=== PATIENT | female | born 1960 | race Caucasian/White ===

== ENCOUNTER 2017-08-06 10:42 | Emergency (ER) | payer MEDICAID ==
[~2017-08-06] VITALS: Ht 162.6 cm; Wt 77.7 kg
[~2017-08-06 10:42] MED LIST: CLOT30CR24 TOP; CYCL-319 PO; ERYT1OIN6 LEFT EYE; HYDR-906 PO; IBUP-1542 PO; NAPR-260 PO
[2017-08-06 10:49] VITALS: Ht 162.6 cm; Wt 77.7 kg
--- NOTE | 2017-08-06 14:12 | RADRPT ---
PROCEDURE: XR Chest. CLINICAL INDICATION: Neck swelling TECHNIQUE: Single frontal view of the chest was obtained COMPARISON: None FINDINGS: The heart and mediastinum are within normal limits. There is mild elevation of the right diaphragm. The lungs are clear. There is no pleural effusion or pneumothorax. RPTAT: AA IMPRESSION: No acute disease. .Afshin Mora MD, MD Date Time Electronically viewed and signed by .Afshin Mora MD, MD on 08/06/2017 14:11 .S/
[2017-08-06 14:47] LABS: ALBUMIN 4.4 g/dl (3.3-4.9); ALBUMIN/GLOBULIN RATIO 0.91; BILIRUBIN,INDIRECT 0.4 mg/dl (0-1.1); BILIRUBIN,TOTAL 0.4 mg/dl (0.2-1.3); CALCIUM 9.7 mg/dl (8.4-10.2); CREATININE 0.79 mg/dl (0.44-1.00); POTASSIUM 4.2 mmol/L (3.5-5.1); TOTAL PROTEIN 9.2 g/dl (6.1-8.1)
--- NOTE | 2017-08-06 15:36 | RADRPT ---
PROCEDURE: US Thyroid. CLINICAL INDICATION: Neck pain and dysphasia. TECHNIQUE: High-resolution sonography of the thyroid was performed in the axial and sagittal plane s. COMPARISON: None. FINDINGS: The right lobe measures 3.4 x 1.7 x 1.3 cm. The left lobe measures 3.4 x 1.0 x 1.1 cm. The isthmus measures 0.4 cm. There is a benign cystic nodule in the mid left lobe measuring 0.2 cm. There is no other thyroid nod ule. Thyroid echogenicity is normal. The thyroid is normal in size. IMPRESSION: 1. Benign cystic nodule in the mid left lobe measuring 0.2 cm. No further evaluation is required. 2. Otherwise normal thyroid ultrasound. RPTAT: QQ .Jigar Flores MD, Date Time Electronically viewed and signed by .Jigar Flores MD, on 08/06/2017 15:36 .R/
--- NOTE | 2017-08-06 15:55 | RADRPT ---
PROCEDURE: Ultrasound of the soft tissues of the neck. CLINICAL INDICATION: Palpable lesion in the bilateral neck. TECHNIQUE: High-resolution sonography of the bilateral neck at the site of the palpable lesion was performed in the axial and sagittal planes. COMPARISON: None FINDINGS: In the right side of the neck, there are benign-appearing lymph nodes measuring 1.0 x 0.4 cm 1.3 x 0 .4 cm. In the left side of the neck there are benign-appearing lymph nodes measuring 0.8 x 0.4 cm an d 0.7 x 0.3 cm. There is no other abnormality at the site of the palpable lesion. IMPRESSION: 1. Benign-appearing bilateral cervical lymph nodes. 2. Any further management regarding the palpable lesion should be based on clinical grounds. RPTAT: QQ .Jigar Flores MD, Date Time Electronically viewed and signed by .Jigar Flores MD, MD on 08/06/2017 15:55 .R/
[2017-08-06] MEDS ORDERED: IBUP-1542 PO (16:01)
[2017-08-06] MEDS ORDERED: PRED20TA PO (16:01)
[2017-08-06] MEDS ORDERED: AMOX1TAB10 PO (16:01)
[2017-08-06 16:17] LABS: BASOPHILS % 0.4 % (0.0-2.0); EOSINOPHILS # 0.2 10^3/ul (0.0-0.5); EOSINOPHILS % 2.1 % (0.0-7.0); HEMATOCRIT 45.2 % (37.0-47.0); HEMOGLOBIN 14.7 g/dl (12.0-16.0); LYMPHOCYTES # 2.4 10^3/ul (0.8-2.9); LYMPHOCYTES % 30.5 % (15.0-51.0); MEAN CORPUSCULAR HEMOGLOBIN 28.5 pg (29.0-33.0); MEAN CORPUSCULAR HGB CONC 32.5 g/dl (32.0-37.0); MEAN CORPUSCULAR VOLUME 87.6 fl (82.0-101.0); MEAN PLATELET VOLUME 11.5 fl (7.4-10.4); MONOCYTE # 0.4 10^3/ul (0.3-0.9); MONOCYTES % 5.6 % (0.0-11.0); NEUTROPHIL # 4.7 10^3/ul (1.6-7.5); NEUTROPHILS % 61.1 % (39.0-77.0); PLATELET COUNT 244 10^3/UL (140-415); RED BLOOD COUNT 5.16 10^6/ul (4.20-5.40); RED CELL DISTRIBUTION WIDTH 12.6 % (11.5-14.5); WHITE BLOOD COUNT 7.7 10^3/ul (4.8-10.8)
--- NOTE | 2017-08-06 16:18 | ERD ---
ER Documentation Chief Complaint Chief Complaint HAVING TROUBLE SWALLOWING, SWOLLEN LUMPS ON NECK/THROAT HPI 56-year-old female comes in with painful swallowing, and noting swelling to her neck. She states that this started about 4 weeks ago when she has painful swallowing with this. Her anterior neck lesions that have swelling, she has some pain in the anterior neck as well, described as pressure-like and is worse when she is swallowing. She has not had any fevers or chills, voice changes, drooling, shortness breath, chest pain. Denies palpitations. ROS All systems reviewed and are negative except as per history of present illness. Medications Home Meds Active Scripts Prednisone* (Prednisone*) 20 Mg Tab, 40 MG PO DAILY for 5 Days, TAB Prov:MESERET OVALLE PA-C 08/06/17 Ibuprofen* (Motrin*) 600 Mg Tab, 600 MG PO Q6, #30 TAB Prov:MESERET OVALLE PA-C 08/06/17 Amoxicillin/Potassium Clav (Amox-Clav 875-125 mg Tablet) 875-125 mg Tab, 1 TAB PO BID for 7 Days, #14 TAB Prov:MESERET OVALLE PA-C 08/06/17 Cyclobenzaprine Hcl* (Cyclobenzaprine Hcl*) 10 Mg Tablet, 10 MG PO TID, #15 TAB Prov:ABIMBOLA GARZA PA-C 06/19/16 Hydrocodone/Acetaminophen ([place] 5-325 Tablet) 1 Each Tablet, 1 TAB PO Q6H Y for PAIN, #7 TAB Prov:ABIMBOLA GARZA PA-C 06/19/16 Naproxen* (Naprosyn*) 500 Mg Tablet, 500 MG PO BID Y for PAIN AND/OR INFLAMMATION, #30 TAB Prov:ABIMBOLA GARZA PA-C 06/19/16 Clotrimazole* (Clotrimazole* AF) 1% - 30 Gm Cream.gm., 1 APPLIC TOP BID for 7 Days, TUB Prov:FERNANDO COWAN 11/20/15 Ibuprofen* (Motrin*) 600 Mg Tab, 600 MG PO Q6, #30 TAB Prov:FERNANDO COWAN 11/20/15 Erythromycin (Erythromycin Opth) 3.5 Gm Oint..gm., 1 APPLIC LEFT EYE QID for 7 Days, EA Prov:HAZEL JULES NP 07/01/15 Allergies Allergies: Coded Allergies: No Known Drug Allergies (Verified Allergy, Unknown, 06/19/16) PMhx/Soc Medical and Surgical Hx: pt denies Medical Hx, pt denies Surgical Hx History of Surgery: No Anesthesia Reaction: No Hx Neurological Disorder: No Hx Respiratory Disorders: No Hx Cardiac Disorders: No Hx Psychiatric Problems: No Hx Miscellaneous Medical Probl: No Hx Alcohol Use: No Hx Substance Use: No Hx Tobacco Use: No Smoking Status: Never smoker Physical Exam Vitals Vital Signs Date Time Temp Pulse Resp B/P Pulse Ox O2 Delivery O2 Flow Rate FiO2 08/06/17 10:49 98.9 74 16 139/69 97 Physical Exam General: Well-developed, well-nourished. The patient appears in no acute distress. HEENT: Head is normocephalic, atraumatic. No scleral icterus. Pupils are equal , round, and reactive. Oral mucous membranes are moist. No pharyngeal erythema. Neck: Supple, no meningismus. There is definite cervical anterior lymphadenopathy, no fluctuance, no erythema, no warmth. There are no thyroid masses appreciated. Lungs: Clear to auscultation. Normal air movement. Heart: Regular rate and rhythm. S1 and S2 are normal. No murmurs, gallops, or rubs. Abdomen: Soft, nontender, nondistended. Bowel sounds are normoactive. Extremities: No clubbing or cyanosis. Normal pulses. Moving extremities x 4. No weakness. Neurologic: Alert and oriented 3. No focal deficits. Skin: Normal turgor. No rash or lesions. Result Diagram: 08/06/17 1420 08/06/17 1420 Results 24 hrs Laboratory Tests Test 08/06/17 14:20 White Blood Count 7.710^3/ul Red Blood Count 5.1610^6/ul Hemoglobin 14.7g/dl Hematocrit 45.2% Mean Corpuscular Volume 87.6fl Mean Corpuscular Hemoglobin 28.5pg Mean Corpuscular Hemoglobin Concent 32.5g/dl Red Cell Distribution Width 12.6% Platelet Count 32588^3/UL Mean Platelet Volume 11.5fl Neutrophils % 61.1% Lymphocytes % 30.5% Monocytes % 5.6% Eosinophils % 2.1% Basophils % 0.4% Nucleated Red Blood Cells % 0.0/100WBC Neutrophils # 4.710^3/ul Lymphocytes # 2.410^3/ul Monocytes # 0.410^3/ul Eosinophils # 0.210^3/ul Basophils # 0.010^3/ul Nucleated Red Blood Cells # 0.010^3/ul Sodium Level 144mmol/L Potassium Level 4.2mmol/L Chloride Level 102mmol/L Carbon Dioxide Level 35mmol/L Anion Gap 11 Blood Urea Nitrogen 13mg/dl Creatinine 0.79mg/dl Glucose Level 155mg/dl Calcium Level 9.7mg/dl Total Bilirubin 0.4mg/dl Direct Bilirubin 0.00mg/dl Indirect Bilirubin 0.4mg/dl Aspartate Amino Transf (AST/SGOT) 21IU/L Alanine Aminotransferase (ALT/SGPT) 34IU/L Alkaline Phosphatase 111IU/L Total Protein 9.2g/dl Albumin 4.4g/dl Globulin 4.80g/dl Albumin/Globulin Ratio 0.91 DIAGNOSTIC IMAGING REPORT Patient: TRUE FRENCH : 1960 Age: 56 Sex: F MR #: [id number] DOS: 08/06/17 1336 Ordering MD: MESERET OVALLE PA-C Location: [facility] Room/Bed: PROCEDURE: XR Chest. CLINICAL INDICATION: Neck swelling TECHNIQUE: Single frontal view of the chest was obtained COMPARISON: None FINDINGS: The heart and mediastinum are within normal limits. There is mild elevation of the right diaphragm. The lungs are clear. There is no pleural effusion or pneumothorax. RPTAT: AA IMPRESSION: No acute disease. .Afshin Mora MD, MD Date Time Electronically viewed and signed by .Afshin Mora MD, on 08/06/2017 14: 11 .S/ CC: MESERET OVALLE PA-C DIAGNOSTIC IMAGING REPORT Patient: TRUE FRENCH : 1960 Age: 56 Sex: F MR #: [id number] DOS: 08/06/17 1439 Ordering MD: MESERET OVALLE PA-C Location: [facility]TE Room/Bed: PROCEDURE: US Thyroid. CLINICAL INDICATION: Neck pain and dysphasia. TECHNIQUE: High-resolution sonography of the thyroid was performed in the axial and sagittal planes. COMPARISON: None. FINDINGS: The right lobe measures 3.4 x 1.7 x 1.3 cm. The left lobe measures 3.4 x 1.0 x 1.1 cm. The isthmus measures 0.4 cm. There is a benign cystic nodule in the mid left lobe measuring 0.2 cm. There is no other thyroid nodule. Thyroid echogenicity is normal. The thyroid is normal in size. IMPRESSION: 1. Benign cystic nodule in the mid left lobe measuring 0.2 cm. No further evaluation is required. 2. Otherwise normal thyroid ultrasound. RPTAT: QQ .Jigar Flores MD, MD Date Time Electronically viewed and signed by .Jigar Flores MD, MD on 08/06/2017 15:36 .R/ CC: MESERET OVALLE PA-C DIAGNOSTIC IMAGING REPORT Patient: TRUE FRENCH : 1960 Age: 56 Sex: F MR #: [id number] DOS: 08/06/17 1336 Ordering MD: MESERET OVALLE PA-C Location: E Room/Bed: PROCEDURE: Ultrasound of the soft tissues of the neck. CLINICAL INDICATION: Palpable lesion in the bilateral neck. TECHNIQUE: High-resolution sonography of the bilateral neck at the site of the palpable lesion was performed in the axial and sagittal planes. COMPARISON: None FINDINGS: In the right side of the neck, there are benign-appearing lymph nodes measuring 1.0 x 0.4 cm 1.3 x 0.4 cm. In the left side of the neck there are benign- appearing lymph nodes measuring 0.8 x 0.4 cm and 0.7 x 0.3 cm. There is no other abnormality at the site of the palpable lesion. IMPRESSION: 1. Benign-appearing bilateral cervical lymph nodes. 2. Any further management regarding the palpable lesion should be based on clinical grounds. RPTAT: QQ .Jigar Flores MD, MD Date Time Electronically viewed and signed by .Jigar Flores MD, MD on 08/06/2017 15:55 .R/ CC: MESERET OVALLE PA-C Procedures/MDM 56-year-old female presents with neck swelling, the patient presents with cervical lymphadenopathy that was seen on the ultrasound, there are no suspicious masses seen or evidence of an abscess. Patient additionally comes in with pain to her anterior neck, there is a cystic lesion on the thyroid, no thyroid mass. Vitals are normal, I doubt patient has thyroiditis. She does not have dysphagia, or difficulty swallowing, there are no signs to indicate CVA or stroke. No evidence of deep space infection, or meningitis. This is her first evaluation for the symptoms. I have advised patient will be treated for lymphadenitis, and if symptoms do not improve that she may follow-up with ENT as outpatient. Patient will be given information to Dr. Jarquin if needed. Departure Diagnosis: Primary Impression: Thyroid cyst Additional Impression: Lymphadenopathy Condition: Good Patient Instructions: Lymphedema Additional Instructions: Llame al doctor MAANA y garrett mamta LEVON PARA DENTRO DE 1-2 WHITE.Dgale a la secretaria que nosotros le instruimos hacer esta levon.Avise o llame si vargas condicin se empeora antes de la levon. Regresa aqui si peor o no mejor. MESERET OVALLE PA-C Aug 06, 2017 16:18
== END 2017-08-06 17:08 | disposition home or self-care (01) ==
LOC: FTE 10:42
DX: E04.1 Nontoxic single thyroid nodule (principal); R59.1 Generalized enlarged lymph nodes
CPT/HCPCS: 71010; 76536; 80053; 85025; Z7502

== ENCOUNTER → 2018-04-03 | Emergency (ER) | END | disposition home or self-care (01) ==

== ENCOUNTER 2018-09-28 07:44 | Emergency (ER) | payer MEDICAID ==
[~2018-09-28] VITALS: Ht 167.6 cm; Wt 72.0 kg
[~2018-09-28 07:44] MED LIST changes: +AMOX1TAB10 PO; +CEPH-443 PO; -CYCL-319 PO; +CYCL10TA7 PO; +HYDR-4011 PO; -HYDR-906 PO; -NAPR-260 PO; +NAPR-985 PO; +PHEN-538 PO; +PRED20TA PO
[2018-09-28 07:48] VITALS: BP 138/63; PULSE 71; RESP 20; Ht 167.6 cm; Wt 72.0 kg
[2018-09-28] MEDS ORDERED: NAPR-985 PO (09:58)
--- NOTE | 2018-09-28 09:58 | ERD ---
ER Documentation Chief Complaint Chief Complaint Complains of a lump under the neck x 2 days HPI Patient is a 57 year-old female with no past medical history presents ER for concerns of submandibular swelling for the last 7 months. Patient states she has pain with swallowing. Patient denies any drooling, trismus or difficulty breathing. Patient denies any chest pain or shortness of breath. Patient was seen here 1 year ago for similar symptoms advised to follow-up with an ENT specialist however she has not followed up with an ENT specialist. Patient denies any fevers or chills. Patient denies any vomiting. ROS All systems reviewed and are negative except as per history of present illness. Medications Home Meds Active Scripts Cephalexin* (Keflex*) 500 Mg Capsule, 500 MG PO TID for 7 Days, CAP Prov:ANTHONY ALONSO PA-C 04/03/18 Phenazopyridine Hcl* (Pyridium*) 200 Mg Tab, 200 MG PO TID PRN for URINARY PAIN, #10 TAB Prov:ANTHONY ALONSO PA-C 04/03/18 Prednisone* (Prednisone*) 20 Mg Tab, 40 MG PO DAILY for 5 Days, TAB Prov:MESERET OVALLE PA-C 08/06/17 Ibuprofen* (Motrin*) 600 Mg Tab, 600 MG PO Q6, #30 TAB Prov:MESERET OVALLE PA-C 08/06/17 Amoxicillin/Potassium Clav (Amox-Clav 875-125 mg Tablet) 875-125 mg Tab, 1 TAB PO BID for 7 Days, #14 TAB Prov:MESERET OVALLE PA-C 08/06/17 Cyclobenzaprine Hcl* (Cyclobenzaprine Hcl*) 10 Mg Tablet, 10 MG PO TID, #15 TAB Prov:ABIMBOLA GARZA PA-C 06/19/16 Hydrocodone/Acetaminophen ([place] 5-325 Tablet) 1 Each Tablet, 1 TAB PO Q6H PRN for PAIN, #7 TAB Prov:ABIMBOLA GARZA PA-C 06/19/16 Naproxen* (Naprosyn*) 500 Mg Tablet, 500 MG PO BID PRN for PAIN AND/OR INFLAMMATION, #30 TAB Prov:ABIMBOLA GARZA PA-C 06/19/16 Clotrimazole* (Clotrimazole* AF) 1% - 30 Gm Cream.gm., 1 APPLIC TOP BID for 7 Days, TUB Prov:FERNANDO COWAN 11/20/15 Ibuprofen* (Motrin*) 600 Mg Tab, 600 MG PO Q6, #30 TAB Prov:FERNANDO COWAN 11/20/15 Erythromycin (Erythromycin Opth) 3.5 Gm Oint..gm., 1 APPLIC LEFT EYE QID for 7 Days, EA Prov:HAZEL JULES I. BELT LACER 07/01/15 Allergies Allergies: Coded Allergies: No Known Drug Allergies (Verified Allergy, Unknown, 06/19/16) PMhx/Soc Medical and Surgical Hx: pt denies Medical Hx, pt denies Surgical Hx History of Surgery: No Anesthesia Reaction: No Hx Neurological Disorder: No Hx Respiratory Disorders: No Hx Cardiac Disorders: No Hx Psychiatric Problems: No Hx Miscellaneous Medical Probl: No Hx Alcohol Use: No Hx Substance Use: No Hx Tobacco Use: No Smoking Status: Never smoker FmHx Family History: No diabetes Physical Exam Vitals Vital Signs Date Temp Pulse Resp B/P (MAP) Pulse Ox O2 O2 Flow FiO2 Time Delivery Rate 09/28/18 97.5 71 20 138/63 98 07:48 (88) Physical Exam GENERAL: Well-developed, well-nourished female. Appears in no acute distress. Speaking in full sentences HEAD: Normocephalic, atraumatic. EYES: Pupils are equally reactive bilaterally. EOMs grossly intact. No conjunctival erythema. ENT: Moist mucous membranes. Posterior oropharynx is open and patient is tolerating secretions well. No uvula deviation. No kissing tonsils. Tender to palpation below the left tongue. No drooling. No trismus. NECK: Supple. No meningismus. Normal range of motion of the neck. Left-sided submandibular swelling noted, area is tender. No erythema or warmth. LUNG: Clear to auscultation bilaterally. No rhonchi, wheezing, rales or coarse breath sounds. HEART: Regular rate and rhythm. No murmurs, rubs or gallops. EXTREMITIES: Equal pulses bilaterally. No peripheral clubbing, cyanosis or edema. No unilateral leg swelling. NEUROLOGIC: Alert and oriented. Moving all four extremities without any difficulty. Normal speech. Steady gait. SKIN: Normal color. Warm and dry. No rashes or lesions. Procedures/MDM ED COURSE: The patient was stable throughout ED course. I kept the patient and/or family informed of laboratory and diagnostic imaging results throughout the ED course. DIAGNOSTIC IMAGING: Read by radiologist. Patient: TRUE FRENCH : 1960 Age: 57 Sex: F MR #: [id number] DOS: 09/28/18 0822 Ordering MD: BRIGHT SHINE PA-C Location: FTE Room/Bed: PROCEDURE: CT soft tissue neck without contrast CLINICAL INDICATION: Left-sided mandibular swelling. TECHNIQUE: Direct thin section helically acquired axial sections were obtained through the neck without contrast Coronal and sagittal reformations were obtained. The total CTDIvol is 9 mGy and the DLP is 176 mGy-cm. DICOM images are available. One or more of the following dose reduction techniques were utilized: 1.) Automated exposure control 2.) Adjustment of the mA +/- kV according to patient's size 3.) Use of iterative reconstruction technique. COMPARISON: No prior studies are available for comparison. FINDINGS: Visualized portions of the brain parenchyma are unremarkable. The nasopharynx, oropharynx, hypopharynx, and larynx are unremarkable. There are left-sided tonsoliths. No focal thyroid lesions are seen. The submandibular and parotid glands are unremarkable and normal in appearance. Dental on the limits evaluation of the oral cavity. There are multiple scattered sub centimeter cervical lymph nodes bilaterally, none of which are pathologically enlarged by size criteria. No lytic or blastic osseous lesions are seen. IMPRESSION: No definite evidence for sialolithiasis or noncontrast CT evidence for sialadenitis on the current exam. Scattered bilateral sub centimeter cervical lymph nodes. No definite pathologically enlarged cervical lymph nodes by size criteria. RPTAT: HAP Admit-r Anthony Physician Date Time Electronically viewed and signed by Admit-r Anthony, Physician on 09/28/2018 09:31 AP/ CC: BRIGHT SHINE PA-C [id number] MEDICAL DECISION MAKING: This is a 57-year-old female who presents the ER for concerns of left-sided submandibular swelling for the last 7 months. Vital signs were reviewed. Patient was afebrile. Review of medical records show that patient was seen here in July 2017 for similar symptoms. Patient was noted to have a thyroid cyst advised to follow-up with ENT specialist however she has not yet. CT imaging was obtained. CT imaging of the neck did show left-sided tonsoliths. Numerous scattered subcentimeter cervical lymph nodes bilaterally were noted. None of these lymph nodes were noted to be pathologically enlarged by size criteria. See formal report above. Patient had no evidence of airway compromise. Patient's oropharynx was open and she was speaking in full sentences. Patient had no drooling. Patient was encouraged to follow-up with an ENT specialist on an outpatient basis. Patient given referral information. Patient will also be empirically treated with Augmentin to prevent infection. At this time, patient's presentation was consistent with submandibular swelling. Low suspicion for thyroid mass, cervical spine dislocation, cervical spine fracture, sialolithiasis, parotitis. Patient was nontoxic, not appearing prior to discharge. PRESCRIPTIONS: Augmentin, naproxen DISCHARGE: At this time, patient is stable for discharge and outpatient management. I have instructed the patient to follow-up with his/her primary care physician in 1-2 days. I have discussed with the patient the possibility of needing to see an technical maintenance specialist for further workup and imaging if the pain persists. I have instructed the patient to promptly return to the ER for any new or worsening symptoms including increased pain, swelling, redness, warmth or fever. The patient and/or family expressed understanding of and agreement with this plan. All questions were answered. Home care instructions were provided. . Disclaimer: Inadvertent spelling and grammatical errors are likely due to EHR/dictation software use and do not reflect on the overall quality of patient care. Also, please note that the electronic time recorded on this note does not necessarily reflect the actual time of the patient encounter. Departure Diagnosis: Primary Impression: Submandibular swelling Condition: Stable Patient Instructions: Salivary Gland Swelling, Unk Cause Referrals: RUBEN FAUSTIN MD, GURVINDER TOM,SJ CABRERA,CARMEN Marte MD [facility], [facility] YOU HAVE RECEIVED A MEDICAL SCREENING EXAM AND THE RESULTS INDICATE THAT YOU DO NOT HAVE A CONDITION THAT REQUIRES URGENT TREATMENT IN THE EMERGENCY DEPARTMENT. FURTHER EVALUATION AND TREATMENT OF YOUR CONDITION CAN WAIT UNTIL YOU ARE SEEN IN YOUR DOCTORS OFFICE WITHIN THE NEXT 1-2 DAYS. IT IS YOUR RESPONSIBILITY TO MAKE AN APPOINTMENT FOR FOLOW-UP CARE. IF YOU HAVE A PRIMARY DOCTOR --you should call your primary doctor and schedule an appointment IF YOU DO NOT HAVE A PRIMARY DOCTOR YOU CAN CALL OUR PHYSICIAN REFERRAL HOTLINE AT IF YOU CAN NOT AFFORD TO SEE A PHYSICIAN YOU CAN CHOSE FROM THE FOLLOWING [facility] [address] [facility] [address] [facility]. [facility] [address] [facility] [address] [facility] [address] [facility] [facility] [address] [facility]. [facility] YOU HAVE RECEIVED A MEDICAL SCREENING EXAM AND THE RESULTS INDICATE THAT YOU DO NOT HAVE A CONDITION THAT REQUIRES URGENT TREATMENT IN THE EMERGENCY DEPARTMENT. FURTHER EVALUATION AND TREATMENT OF YOUR CONDITION CAN WAIT UNTIL YOU ARE SEEN IN YOUR DOCTORS OFFICE WITHIN THE NEXT 1-2 DAYS. IT IS YOUR RESPONSIBILITY TO MAKE AN APPOINTMENT FOR FOLOW-UP CARE. IF YOU HAVE A PRIMARY DOCTOR --you should call your primary doctor and schedule and appointment IF YOU DO NOT HAVE A PRIMARY DOCTOR YOU CAN CALL OUR PHYSICIAN REFERRAL HOTLINE AT . IF YOU CAN NOT AFFORD TO SEE A PHYSICIAN YOU CAN CHOSE FROM THE FOLLOWING [facility] INSTITUTIONS: [facility] [address] [place] [address] [facility] [address] [place] [address] [facility] [address] [place] [address] Additional Instructions: Llame al doctor/ ENT specialista MAANA y garrett mamta LEVON PARA DENTRO DE 1-2 WHITE.Dgale a la secretaria que nosotros le instruimos hacer esta levon.Avise o llame si vargas condicin se empeora antes de la levon. Regresa aqui si peor o no mejor. BRIGHT SHINE PA-C Sep 28, 2018 09:58
[2018-09-28] MEDS ORDERED: AMOX1TAB10 PO (09:59)
== END 2018-09-28 10:07 | disposition home or self-care (01) ==
LOC: FTE 07:44
DX: R22.1 Localized swelling, mass and lump, neck (principal)
CPT/HCPCS: 70490; Z7502